=== PATIENT | female | born 1975 | race Caucasian/White ===

== ENCOUNTER 2017-07-28 02:32 | Emergency (ER) | payer SELFPAY ==
[2017-07-28] MEDS ORDERED: ONDANSETRON 4 MG TAB.RAPDIS PO ONE (03:17)
[2017-07-28] MEDS ORDERED: ONDANSETRON 4 MG TAB.RAPDIS ONE (03:18)
--- NOTE | 2017-07-28 03:23 | ERNOTE ---
Medical Problem HPI - General Chief Complaint: Nausea/Vomiting Time Seen by Provider: 07/28/17 03:10 Source: patient Exam Limitations: no limitations - Immun/Allergies/Home Medications Immunizations: IMMUNIZATION HX Immunizations Up to Date Yes History of Influenza Vaccine No Hx Pneumococcal Vaccination No Allergies/Adverse Reactions: Allergies No Known Allergies Allergy (Verified 10/25/15 16:42) Home Medications: HOME MEDICATIONS Ondansetron HCl [Zofran] 1 - 2 tab PO Q8H PRN #10 tab 07/28/17 [Last Taken Unknown] - History of Present History Narrative: Onset of N/V after eating fast food yesterday before noon. Has been vomiting since. Has not had anything by mouth or vomiting since midnight. Timing: constant Severity: moderate, severe Modifying Factors - (Worsens): Present: eating Review of Systems - Review of Systems Constitutional: Absent: recent illness Respiratory: Absent: shortness of breath Cardiology: Absent: chest pain Gastrointestinal/Abdominal: Present: See HPI, nausea, vomiting - small blood streaks in some vomitus, diarrhea, abdominal pain Genitourinary: Present: no symptoms reported Musculoskeletal: Present: no symptoms reported Skin: Present: no symptoms reported Endocrine: Present: excessive sweating Hematologic/Lymphatic: Present: no symptoms reported Psych: Present: no symptoms reported - Patient's Past Medical History Patient History - Medical: No pertinent hx Patient History - Cardiac/Respiratory: No pertinent hx Patient History - Cancer: No Hx of Cancer Patient History - Surgical Procedures: Appendectomy, Tubal Ligation Patient History - Other: None LMP (females 10-50): last week - Social History Living Situations: significant other Abuse History: No History of abuse Psych History: No pertinent hx Smoking Status: Current every day smoker Have you smoked in the past 12 months: Yes Do you dip or chew tobacco: No Patient requests Smoking Cessation Consult: No Initiate information on Smoking Cessation: No Alcohol Use: none Drug Use: none - Immunizations Immunizations Up to Date: Yes Hx Pneumococcal Vaccination: No History of Influenza Vaccine: No Physical Exam - Physical Exam General Appearance: Present: wd/wn, alert, mild distress Head Exam: Present: normal inspection, no evidence of injury Neck: Present: normal inspection, supple, full range of motion Respiratory: Present: no respiratory distress, no accessory muscle use Gastrointestinal/Abdominal: Present: normal bowel sounds, tenderness - upper abdomen diffusely. Absent: distended, guarding, rebound Back Exam: Present: normal inspection, no CVA tenderness Extremity Exam: Present: normal inspection, normal range of motion, no edema Neurological Exam: Present: alert, oriented, no motor/sensory deficits Skin Exam: Present: normal color, warm/dry Lymphatic Exam: Present: no adenopathy ED Progress - Vital Signs Vital Signs: Vital Signs 07/28/17 02:36 Temperature 36.8 C Pulse Rate 96 Respiratory 16 Rate Blood Pressure 137/69 O2 Sat by Pulse 99 Oximetry - Progress/Reassessment Chief Complaint: Nausea/Vomiting Progress:: Improved Progress Note-Subjective: Pt declined IV or IM medications / fluids. Oral zofran given 07/28/17 03:54 able to take sprite without increased nausea, feels much better. Departure Clinical Impression: Food poisoning Qualifiers: Encounter type: initial encounter Injury intent: accidental or unintentional Qualified Code(s): T62.91XA - Toxic effect of unspecified noxious substance eaten as food, accidental (unintentional), initial encounter - Departure Disposition: Home self-care Condition: Good Instructions: Food Poisoning, [id number] Additional Instructions: drink watered down gatorade or watered down juice for 24 hours then slowly return to your normal diet. If you have diarrhea start with the BRAT diet ( Bananas, rice, applesauce, toast). See your primary care doctor if not improving Prescriptions: Ondansetron HCl [Zofran] 1 - 2 tab PO Q8H PRN #10 tab PRN Reason: Nausea
[2017-07-28 05:03] VITALS: BP 129/66
== END 2017-07-28 04:00 | disposition home or self-care (01) ==
LOC: ER 02:32
DX: T62.91XA Toxic effect of unspecified noxious substance eaten as food, accidental (unintentional), initial encounter (principal)